=== PATIENT | male | born 1970 | race Caucasian/White ===

== ENCOUNTER 2021-11-16 00:41 | Emergency (ER) | payer SELFPAY ==
[~2021-11-16] VITALS: Ht 175.3 cm; Wt 90.7 kg
[2021-11-16 02:08] VITALS: BP 132/79
[2021-11-16] MEDS ORDERED: IBUPROFEN 400 MG TABLET PO ONE (02:30)
[2021-11-16] MEDS ORDERED: IBUPROFEN 400 MG TABLET ONE (02:32)
--- NOTE | 2021-11-16 02:38 | NUR ---
swabs collected sent to lab
--- NOTE | 2021-11-16 03:44 | NUR ---
Patient discharged to home in stable condition. Written and verbal after care instructions given. Patient verbalizes understanding of instruction.
== END 2021-11-16 03:45 | disposition home or self-care (01) ==
LOC: ER 00:47
DX: M54.50 Low back pain, unspecified (principal); J02.9 Acute pharyngitis, unspecified; Z20.822 Contact with and (suspected) exposure to COVID-19; Z59.00 Homelessness unspecified; G89.29 Other chronic pain; R03.0 Elevated blood-pressure reading, without diagnosis of hypertension
CPT/HCPCS: 87070; 87426; 87804; 87880; 99283; C9803; 86403-TC

== ENCOUNTER 2021-12-04 02:14 | Emergency (ER) | payer SELFPAY ==
[~2021-12-04] VITALS: Ht 175.3 cm; Wt 90.7 kg
[2021-12-04] MEDS ORDERED: HYDROMORPHONE 1 MG/1 ML DISP.SYRIN ONE (02:28)
[2021-12-04] MEDS ORDERED: HYDROMORPHONE 1 MG/1 ML DISP.SYRIN IV ONE (02:30)
--- NOTE | 2021-12-04 02:36 | NUR ---
BIBS FOR C/O L GROING PAIN X 1 HOUR ONSET WHILE WALKING. PT AWAKE AND ALERT BREATHING EVEN AND UNLABORED. ALL V/S WNL.
--- NOTE | 2021-12-04 03:55 | NUR ---
US TECH AT BED SIDE
[2021-12-04] MEDS ORDERED: MORPHINE SULFATE INJ 4 MG/ML DISP.SYRIN ONE (04:19)
[2021-12-04] MEDS ORDERED: MORPHINE SULFATE INJ 2 MG/ML DISP.SYRIN IV ONE (04:30)
[2021-12-04] MEDS ORDERED: KETO10TA2 PO (04:31)
--- NOTE | 2021-12-04 05:37 | NUR ---
IV removed. Catheter intact and site benign. Pressure and 4x4 applied to site. No bleeding noted.
--- NOTE | 2021-12-04 05:40 | NUR ---
Patient discharged to home in stable condition. Rx and Written and verbal after care instructions given. Patient verbalizes understanding of instruction.
[2021-12-04 05:41] VITALS: BP 121/72
== END 2021-12-04 05:41 | disposition home or self-care (01) ==
LOC: ER 02:16
DX: K40.90 Unilateral inguinal hernia, without obstruction or gangrene, not specified as recurrent (principal); N43.3 Hydrocele, unspecified; G89.29 Other chronic pain; Z59.00 Homelessness unspecified
CPT/HCPCS: 76870; 96374; 96375; 99284; J1170; J2270

== ENCOUNTER 2022-01-15 23:42 | Emergency (ER) | payer MEDICAID ==
[~2022-01-15] VITALS: Ht 175.3 cm; Wt 90.7 kg
[~2022-01-15 23:42] MED LIST: KETO10TA2 PO
[2022-01-15] MEDS ORDERED: KETOROLAC TROMETHAMINE 15 MG/ML VIAL ONE (23:56)
[2022-01-16] MEDS ORDERED: KETOROLAC TROMETHAMINE INJ 30 MG/ML VIAL IV ONE
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
--- NOTE | 2022-01-16 00:03 | NUR ---
18g rac established. blood drawn and sent to lab
[2022-01-16] MEDS ORDERED: IV NS 0.9% 250 ML IV ONE (00:06)
[2022-01-16] MEDS ORDERED: IOHEXOL-300 100 ML VIAL IV ONE (00:06)
[2022-01-16] MEDS ORDERED: CT SWABBABLE VALVE TRANS SET 1 EA INFUS.SET MC ONE (00:07)
--- NOTE | 2022-01-16 00:10 | NUR ---
PT TRANSPORTED TO CT VIA [facility]
--- NOTE | 2022-01-16 00:22 | NUR ---
PT RETURNED FROM CT
[2022-01-16 01:02] LABS: CALCIUM, SERUM 8.5 mg/dL (8.5-10.1); CREATININE 0.8 mg/dL (0.6-1.3)
[2022-01-16] MEDS ORDERED: KETO10TA2 PO (03:31)
--- NOTE | 2022-01-16 04:02 | NUR ---
Patient discharged to home in stable condition. Written and verbal after care instructions given. Patient verbalizes understanding of instruction.IV removed. Catheter intact and site benign. Pressure and 4x4 applied to site. No bleeding noted.
[2022-01-16 04:03] VITALS: BP 102/60
== END 2022-01-16 04:04 | disposition home or self-care (01) ==
LOC: ER 23:47
DX: S30.811A Abrasion of abdominal wall, initial encounter (principal); S50.312A Abrasion of left elbow, initial encounter; S09.90XA Unspecified injury of head, initial encounter; M79.18 Myalgia, other site; F17.210 Nicotine dependence, cigarettes, uncomplicated; G89.29 Other chronic pain; V09.9XXA Pedestrian injured in unspecified transport accident, initial encounter; Y93.89 Activity, other specified; Y92.89 Other specified places as the place of occurrence of the external cause; Y99.8 Other external cause status
CPT/HCPCS: 99285; 72125; 96374; 99406; 71260; 70450; 74177; 80048; 36415; J1885; J7050; Q9967